=== PATIENT | female | born 1975 | race Caucasian/White ===

== ENCOUNTER 2019-06-17 13:49 | Observation (INO) ==
[2019-06-17 15:46] LABS: Bilirubin,Urine Negative (Negative); Blood,Urine Negative (Negative); Clarity,Urine Clear (Clear); Color,Urine Yellow (Yellow); Glucose,Urine (UA) Normal (Normal); Ketones,Urine Negative (Negative); Leukocyte Esterase,Urine Negative (Negative); Nitrite,Urine Negative (Negative); PH,Urine 6.5 pH Units (5.0-8.0); Protein,Urine Negative (Neg-Trace); Specific Gravity,Urine 1.011 (1.010-1.025); Urobilinogen,Urine Normal (Normal)
[2019-06-17 15:51] LABS: Amphetamine Screen,Urine Negative ng/mL (Cutoff=1000); Barbiturate Screen,Urine Negative ng/mL (Cutoff=200); Benzodiazepines Screen,Urine Negative ng/mL (Cutoff=200); Cannabinoid Screen,Urine Positive ng/mL (Cutoff = 50); Cocaine Screen,Urine Negative ng/mL (Cutoff= 300); Opiate Screen,Urine Negative ng/mL (Cutoff=300); Phencyclidine Screen,Urine Negative ng/mL (Cutoff=25)
[2019-06-17 15:58] LABS: Basophils # 0.1 K/mcL (0.0-0.2); Eosinophils # 0.4 K/mcL (0.0-0.6); Eosinophils % 5.1 %; Hematocrit 35.8 % (35.3-44.9); Hemoglobin 12.3 g/dL (11.5-15.4); Immature Granulocytes % 0.1 % (0-4); Lymphocytes # 2.2 K/mcL (0.6-4.6); Lymphocytes % 31.5 %; Mean Corpuscular HGB Conc 34.4 g/dL (31.6-35.5); Mean Platelet Volume 8.2 fL (9.4-12.4); Monocytes # 0.6 K/mcL (0.0-1.3); Monocytes % 8.3 %; Neutrophils # 3.8 K/mcL (1.6-8.9); Platelet Count 383 K/mcL (140-400); Red Blood Count 3.73 M/mcL (3.82-4.97); Red Cell Distribution Width 12.6 % (11.5-14.5); White Blood Count 7.1 K/mcL (4.3-11.1)
--- NOTE | 2019-06-17 16:00 | Emergency Department Note ---
Disposition Clinical Impression: Alcohol abuse Alcohol withdrawal Qualifiers: Complication of substance-induced condition: uncomplicated Qualified Code(s): F10.230 - Alcohol dependence with withdrawal, uncomplicated Disposition: Admitted As Inpatient Condition: Good Forms: ED Satisfaction Letter, Work/School Release Time of Disposition: 16:40 General Adult HPI - General Chief complaint: ED General Medical Stated complaint: "sent for detox" Time Seen by Provider: 06/17/19 14:29 Source: patient Mode of arrival: ambulatory Limitations: no limitations Nursing Notes Reviewed: Yes Vital Signs Reviewed: Yes - History of Present Illness HPI Narrative: 43-year-old female presented to the emergency department with possible alcohol withdrawal. Patient has been a chronic alcoholic for approximately 10-15 years. Said she drinks at least one bottle of wine every single night. She last drank approximately 2-3 hours prior to arrival. She did call here about possible resources as she got a recent DUI approximately a month ago. We sent her to [facility] where she was seen there they said a seawall score was 21 when they evaluated her and recommended she come here for evaluation for possible alcohol withdrawal. She was unable, due to work in this partly 2 days ago. She is able to come today says she did drink today they told her not to stop drinking she would go into withdrawal. She says she does want start drinking she was to clean up her life. She denies any suicidal or homicidal ideations at this time. Although she says when she recently has been drinking and blacked out people told her that she should she said she wanted to kill herself and actually had a plan on how she was given a do it. She does not remember any of that whenever she woke up. She has no feet no fevers no chills she has no shaking at this time. Patient otherwise has no other complaints. She says she feels very anxious. Does have history of PTSD and said that when she is not drinking all those memories come back. She is not currently taking any psychiatric medications or any other medications otherwise Pain Scale: 0 - Related Data Allergies Allergy/AdvReac Type Severity Reaction Status Date / Time No Known Allergies Allergy Verified 06/17/19 13:51 All systems ED: reviewed and negative except as stated. Review of Systems: As Per HPI Past Medical History - Past Medical History Attestation: Yes The following information was validated with the patient. Source: patient Medical history: Reports: no medical history Psychiatric history: Reports: anxiety, depression - Social History Smoking Status: Never smoker Smokeless Tobacco Status: No Alcohol use: Reports: heavy, recent Drug use: Reports: none Physical Exam - General Limitations: no limitations General appearance: alert, in no apparent distress - Head Head exam: atraumatic, normocephalic, normal inspection - Eye Eye exam: Present: normal appearance, PERRL, EOMI - ENT ENT exam: normal exam, normal oropharynx, mucous membranes moist - Neck Neck exam: Present: normal inspection, full ROM, trachea midline - Chest Chest inspection: Present: normal inspection, symmetric chest wall rise - Respiratory Respiratory exam: Present: normal lung sounds bilaterally - Cardiovascular Cardiovascular exam: Present: regular rate, normal rhythm, normal heart sounds - Abdominal Exam Abdominal exam: Present: soft, Non-Tender, normal bowel sounds. Absent: tenderness, distention, guarding, rebound, rigidity - Extremities Exam Extremities exam: Present: normal inspection, full ROM. Absent: tenderness, pedal edema - Back Exam Back exam: Present: normal inspection, full ROM. Absent: tenderness - Neurological Exam Neurological exam: Present: alert, oriented X3 - Skin Skin exam: Present: warm, dry, intact, normal color Course Course Narrative: We have basic psychiatry labs including CBC BMP urinalysis as well as everything is normal including an alcohol level and drug screen we will go ahead and admit the patient for alcohol intoxication and withdrawal symptoms. Vital Signs Temperature 98.1 F 06/17/19 13:52 Pulse Rate 98 06/17/19 13:52 Respiratory Rate 15 06/17/19 13:52 Blood Pressure 136/93 06/17/19 13:52 O2 Sat by Pulse Oximetry 96 06/17/19 13:52 Temperature 98.1 F 06/17/19 13:52 Pulse Rate 82 06/17/19 16:07 Respiratory Rate 16 06/17/19 16:07 Blood Pressure 127/85 06/17/19 16:07 O2 Sat by Pulse Oximetry 97 06/17/19 16:07 Oxygen Delivery Oxygen Delivery Room Air Medical Decision Making - [facility] Narrative Medical decision making narrative: 43-year-old female presented here for possible occult intoxication as well as detox. Patient says that she does want to stop drinking alcohol. She is not have any suicidal or homicidal ideations at this time but said that when she does drink she does have those thoughts. She does think that she does not to see a psychiatrist but is not emergent at this time. She again states that she has no suicidal or homicidal complaints at this time when she was in the emergency department. She did not need to be pink slipped. Patient did drink approximately 2-3 hours prior to her arrival. She did have an elevated alcohol of 113. Due to patient wanting to stop drinking she could go into withdrawal she has been drinking 1 bottle of wine every single day for the past 10 years. Due to this we will go ahead and keep the patient in the hospital and watch for withdrawal. She had a CIWA done at an outside facility that graded her at 19. We did order labs that were needed for possibly starting give a trial which included hepatitis HIV hepatic panel RPR. These are all pending at this time. I spoke with the hospitalist Dr. Felix who agreed to admit the patient to the hospital service for further evaluation. - Medical Records Medical records reviewed: Yes I reviewed the patient's medical records. - Lab Data Lab results reviewed: Yes I reviewed the patient's lab results. Result diagrams: 06/17/19 15:32 06/17/19 15:32 Lab Results 06/17/19 06/17/19 06/17/19 Range/Units 15:15 15:15 15:32 WBC 7.1 (4.3-11.1) K/mcL RBC 3.73 L (3.82-4.97) M/mcL Hgb 12.3 (11.5-15.4) g/dL Hct 35.8 (35.3-44.9) % MCV 96.0 (83.0-100.0) fL MCH 33.0 (28.0-33.3) pg MCHC 34.4 (31.6-35.5) g/dL RDW 12.6 (11.5-14.5) % Plt Count 383 (140-400) K/mcL MPV 8.2 L (9.4-12.4) fL Immature Gran % 0.1 (0-4) % Seg Neutrophils % 54.0 % Lymphocytes % 31.5 % Monocytes % 8.3 % Eosinophils % 5.1 % Basophils % 1.0 % Neutrophils # 3.8 (1.6-8.9) K/mcL Lymphocytes # 2.2 (0.6-4.6) K/mcL Monocytes # 0.6 (0.0-1.3) K/mcL Eosinophils # 0.4 (0.0-0.6) K/mcL Basophils # 0.1 (0.0-0.2) K/mcL Sodium (136-145) mEq/L Potassium (3.5-5.1) mEq/L Chloride (98-107) mEq/L Carbon Dioxide (23-29) mEq/L BUN (6-20) mg/dL Creatinine (0.60-1.20) mg/dL Est GFR ( Amer) (> 60) Est GFR (Non-Af Amer) (> 60) BUN/Creatinine Ratio (6-26) Glucose (70-105) mg/dL Calculated Osmolality (280-300) Calcium (8.6-10.3) mg/dL Urine Color Yellow (Yellow) Urine Clarity Clear (Clear) Urine pH 6.5 (5.0-8.0) pH Units Ur Specific [place] 1.011 (1.010-1.025) Urine Protein Negative (Neg-Trace) mg/dL Urine Glucose (UA) Normal (Normal) mg/dL Urine Ketones Negative (Negative) mg/dL Urine Blood Negative (Negative) Urine Nitrite Negative (Negative) Urine Bilirubin Negative (Negative) Urine Urobilinogen Normal (Normal) mg/dL Ur Leukocyte Esterase Negative (Negative) Salicylates (15.0-30.0) mg/dL Urine Opiates Screen Negative (Avyany=026) ng/mL Ur Buprenorphine Scrn Negative (Cutoff=5) ng/mL Acetaminophen (10-20) mcg/mL Ur Barbiturates Screen Negative (Aoiyne=307) ng/mL Ur Phencyclidine Scrn Negative (Cutoff=25) ng/mL Ur Amphetamines Screen Negative (Tcxkfb=1538) ng/mL U Benzodiazepines Scrn Negative (Ubvptc=498) ng/mL Urine Cocaine Screen Negative (Cutoff= 300) ng/mL U Marijuana (THC) Screen Positive H (Cutoff = 50) ng/mL Ur Drug Screen Interp See Below Ethyl Alcohol (Less than 10) mg/dL 06/17/19 Range/Units 15:32 WBC (4.3-11.1) K/mcL RBC (3.82-4.97) M/mcL Hgb (11.5-15.4) g/dL Hct (35.3-44.9) % MCV (83.0-100.0) fL MCH (28.0-33.3) pg MCHC (31.6-35.5) g/dL RDW (11.5-14.5) % Plt Count (140-400) K/mcL MPV (9.4-12.4) fL Immature Gran % (0-4) % Seg Neutrophils % % Lymphocytes % % Monocytes % % Eosinophils % % Basophils % % Neutrophils # (1.6-8.9) K/mcL Lymphocytes # (0.6-4.6) K/mcL Monocytes # (0.0-1.3) K/mcL Eosinophils # (0.0-0.6) K/mcL Basophils # (0.0-0.2) K/mcL Sodium 141 (136-145) mEq/L Potassium 3.6 (3.5-5.1) mEq/L Chloride 106 (98-107) mEq/L Carbon Dioxide 26 (23-29) mEq/L BUN 10 (6-20) mg/dL Creatinine 0.60 (0.60-1.20) mg/dL Est GFR ( Amer) > 60 (> 60) Est GFR (Non-Af Amer) > 60 (> 60) BUN/Creatinine Ratio 17 (6-26) Glucose 85 (70-105) mg/dL Calculated Osmolality 290 (280-300) Calcium 8.9 (8.6-10.3) mg/dL Urine Color (Yellow) Urine Clarity (Clear) Urine pH (5.0-8.0) pH Units Ur Specific [place] (1.010-1.025) Urine Protein (Neg-Trace) mg/dL Urine Glucose (UA) (Normal) mg/dL Urine Ketones (Negative) mg/dL Urine Blood (Negative) Urine Nitrite (Negative) Urine Bilirubin (Negative) Urine Urobilinogen (Normal) mg/dL Ur Leukocyte Esterase (Negative) Salicylates < 2.5 L (15.0-30.0) mg/dL Urine Opiates Screen (Cgdqev=112) ng/mL Ur Buprenorphine Scrn (Cutoff=5) ng/mL Acetaminophen < 10 L (10-20) mcg/mL Ur Barbiturates Screen (Pduzsv=567) ng/mL Ur Phencyclidine Scrn (Cutoff=25) ng/mL Ur Amphetamines Screen (Cucxpr=1174) ng/mL U Benzodiazepines Scrn (Nvqwub=652) ng/mL Urine Cocaine Screen (Cutoff= 300) ng/mL U Marijuana (THC) Screen (Cutoff = 50) ng/mL Ur Drug Screen Interp Ethyl Alcohol 113 H (Less than 10) mg/dL
[2019-06-17 16:11] LABS: Acetaminophen < 10 mcg/mL (10-20); BUN/Creatinine Ratio 17 (6-26); Blood Urea Nitrogen 10 mg/dL (6-20); Calcium 8.9 mg/dL (8.6-10.3); Carbon Dioxide 26 mEq/L (23-29); Chloride 106 mEq/L (98-107); Ethanol 113 mg/dL (Less than 10); Glucose 85 mg/dL (70-105); Osmolality,Calculated 290 (280-300); Potassium 3.6 mEq/L (3.5-5.1); Salicylate < 2.5 mg/dL (15.0-30.0); Sodium 141 mEq/L (136-145); eGFR For African Americans > 60 (> 60); eGFR For Non-African Americans > 60 (> 60)
--- NOTE | 2019-06-17 16:42 | Internal Med History&Physical ---
Date of Encounter: 06/17/19 Time of Encounter: 16:42 Internal Medicine - H&P: HPI Chief complaint: Alcohol abuse History of present illness: Ms. Nieto is a 43 year old female with no significant past medical history who presented for possible alcohol withdrawal. The patient is chronic alcoholic drink 1 bottle of GI wine every night. Last drink was about 3 hours prior to her arrival to the ER. The patient has been arrested for DUI about a month ago. The patient stated that she is genuinely wish to stop drinking alcohol, however she is afraid to stop suddenly and that will lead to alcohol withdrawal so decided to seek medical attention in our ER. We will admit the patient to the hospital and start CIWA protocol while waiting for social media coordinator to place her for detox. The patient has no history of psychiatric disorders and not in any psychiatric medication and denies suicidal and homicidal ideation. She stated that one night she wake up and she found a rope tied around her neck and that was made her concerned that she might has attempted or thought about suicide while drunk. We will consult psych for further evaluation and management. Past Med Surg Social Fam HX - Past Medical History Medical history: no medical history Psychiatric history: anxiety, depression - Past Surgical History Additional surgical history: breast sx - Social History Smoking Status: Never smoker Smokeless Tobacco Status: No Alcohol use: heavy, recent Drug use: none Internal Medicine - H&P: Meds No Known Home Drugs 06/17/19 [History] Allergy/AdvReac Type Severity Reaction Status Date / Time No Known Allergies Allergy Verified 06/17/19 13:51 All Systems PM: A 10-system review of systems was performed and is negative for pertinent findings except as documented above in the HPI. - Constitutional Vitals: Temp Pulse Resp BP Pulse Ox 98.1 F 82 16 127/85 97 06/17/19 13:52 06/17/19 16:07 06/17/19 16:07 06/17/19 16:07 06/17/19 16:07 General appearance: Present: A&O X 3 Exam: ` - Neck Neck exam general surgery: Present: supple, trachea midline. Absent: lympha denopathy - Respiratory Respiratory exam: Present: CTAB. Absent: accessory muscle use, rales, rhonchi, wheezes - Cardiovascular Cardiovascular exam: Present: RRR, +S1, +S2. Absent: diastolic murmur, gallop, rubs, systolic murmur - GI/Abdominal GI/Abdominal exam: Present: normal bowel sounds, soft, no peritoneal signs. Absent: distended, tenderness - Extremities Exam Extremities exam: Present: warm, radial pulses palpable and symmetrical. Absent: calf tenderness, cyanotic, pedal edema - Neurological Exam Neurological exam: Present: CN II-XII intact, oriented X3, no focal deficits. Absent: pronater drift, facial droop, speech deficit Internal Med - H&P Results - Labs CBC & Chem 7: 06/17/19 15:32 06/17/19 15:32 Labs: Short CBC 06/17/19 Range/Units 15:32 WBC 7.1 (4.3-11.1) K/mcL Hgb 12.3 (11.5-15.4) g/dL Hct 35.8 (35.3-44.9) % Plt Count 383 (140-400) K/mcL Neutrophils # 3.8 (1.6-8.9) K/mcL BMP 06/17/19 15:32 Sodium 141 Potassium 3.6 Chloride 106 Carbon Dioxide 26 BUN 10 Creatinine 0.60 Glucose 85 Calcium 8.9 Urine 06/17/19 Range/Units 15:15 Urine Color Yellow (Yellow) Urine Clarity Clear (Clear) Urine pH 6.5 (5.0-8.0) pH Units Ur Specific [place] 1.011 (1.010-1.025) Urine Protein Negative (Neg-Trace) mg/dL Urine Glucose (UA) Normal (Normal) mg/dL - Assessment and Plan (1) Alcohol abuse Current Visit: Yes Status: Acute Assessment and plan: We will admit the patient to the hospital and start WA protocol while waiting for social media coordinator to place her for detox. The patient has no history of psychiatric disorders and not in any psychiatric medication and denies suicidal and homicidal ideation. She stated that one night she wake up and she found a rope tied around her neck and that was made her concerned that she might has attempted or thought about suicide while drunk. We will consult psych for further evaluation and management. (2) Alcohol withdrawal Current Visit: Yes Status: Acute Assessment and plan: See #1 Qualifiers: Complication of substance-induced condition: with unspecified complication Qualified Code(s): F10.239 - Alcohol dependence with withdrawal, unspecified - Time Spent With Patient Total time spent is greater than 50% in coordination of care (as documented) at patient's floor/unit and/or counseling patient:
[2019-06-17] MEDS ORDERED: *HR* LORazepam 2 MG/ML VIAL IVP PRN ×3 (16:43)
[2019-06-17 16:44] LABS: Alanine Aminotransferase 25 Units/L (7-52); Albumin 4.3 g/dL (3.5-5.7); Albumin/Globulin Ratio 1.7 (1.1-2.2); Alkaline Phosphatase 49 Units/L (34-104); Aspartate Amino Transferase 23 Units/L (13-39); Bilirubin,Direct 0.1 mg/dL (0.0-0.2); Bilirubin,Indirect 0.2 mg/dL (0.0-1.2); Bilirubin,Total 0.3 mg/dL (0.3-1.0); Globulin 2.6 g/dL (2.4-3.5); Total Protein 6.9 g/dL (6.4-8.9)
[2019-06-17] MEDS ORDERED: Naloxone 0.4 MG/ML INJ IVP PRN (16:48)
[2019-06-17] MEDS ORDERED: Ondansetron 4 MG/2 ML VIAL IVP PRN (16:48)
[2019-06-17 17:04] LABS: Amylase 35 Units/L (29-103); Lipase 27 Units/L (11-82)
[2019-06-17 17:07] LABS: Prothrombin Time 11.1 Seconds (9.4-12.1)
--- NOTE | 2019-06-17 17:21 | Emergency Department Note ---
Disposition Clinical Impression: Alcohol abuse Alcohol withdrawal Qualifiers: Complication of substance-induced condition: with unspecified complication Qualified Code(s): F10.239 - Alcohol dependence with withdrawal, unspecified Disposition: Admitted As Inpatient Condition: Good Time of Disposition: 16:40 General Adult HPI - General Chief complaint: ED General Medical Stated complaint: "sent for detox" Time Seen by Provider: 06/17/19 14:29 Source: patient Mode of arrival: ambulatory Limitations: no limitations - History of Present Illness Pain Scale: 0 - Related Data Home Medications Medication Instructions Recorded Confirmed No Known Home Drugs 06/17/19 06/17/19 Allergies Allergy/AdvReac Type Severity Reaction Status Date / Time No Known Allergies Allergy Verified 06/17/19 13:51 Past Medical History - Past Medical History Medical history: Reports: no medical history Psychiatric history: Reports: anxiety, depression - Social History Smoking Status: Never smoker Smokeless Tobacco Status: No Alcohol use: Reports: heavy, recent Drug use: Reports: none Physical Exam - General Limitations: no limitations General appearance: alert, in no apparent distress Course Vital Signs Temperature 98.1 F 06/17/19 13:52 Pulse Rate 98 06/17/19 13:52 Respiratory Rate 15 06/17/19 13:52 Blood Pressure 136/93 06/17/19 13:52 O2 Sat by Pulse Oximetry 96 06/17/19 13:52 Temperature 98.4 F 06/18/19 10:54 Pulse Rate 84 06/18/19 10:54 Respiratory Rate 16 06/18/19 10:54 Blood Pressure 156/88 06/18/19 10:54 O2 Sat by Pulse Oximetry 97 06/18/19 10:54 Oxygen Delivery Oxygen Delivery Room Air Medical Decision Making - Lab Data Result diagrams: 06/18/19 04:26 06/18/19 04:26 Lab Results 06/17/19 06/17/19 06/17/19 Range/Units 15:15 15:15 15:32 WBC 7.1 (4.3-11.1) K/mcL RBC 3.73 L (3.82-4.97) M/mcL Hgb 12.3 (11.5-15.4) g/dL Hct 35.8 (35.3-44.9) % MCV 96.0 (83.0-100.0) fL MCH 33.0 (28.0-33.3) pg MCHC 34.4 (31.6-35.5) g/dL RDW 12.6 (11.5-14.5) % Plt Count 383 (140-400) K/mcL MPV 8.2 L (9.4-12.4) fL Immature Gran % 0.1 (0-4) % Seg Neutrophils % 54.0 % Lymphocytes % 31.5 % Monocytes % 8.3 % Eosinophils % 5.1 % Basophils % 1.0 % Neutrophils # 3.8 (1.6-8.9) K/mcL Lymphocytes # 2.2 (0.6-4.6) K/mcL Monocytes # 0.6 (0.0-1.3) K/mcL Eosinophils # 0.4 (0.0-0.6) K/mcL Basophils # 0.1 (0.0-0.2) K/mcL PT (9.4-12.1) Seconds INR Sodium (136-145) mEq/L Potassium (3.5-5.1) mEq/L Chloride (98-107) mEq/L Carbon Dioxide (23-29) mEq/L BUN (6-20) mg/dL Creatinine (0.60-1.20) mg/dL Est GFR ( Amer) (> 60) Est GFR (Non-Af Amer) (> 60) BUN/Creatinine Ratio (6-26) Glucose (70-105) mg/dL Calculated Osmolality (280-300) Calcium (8.6-10.3) mg/dL Total Bilirubin (0.3-1.0) mg/dL Direct Bilirubin (0.0-0.2) mg/dL Indirect Bilirubin (0.0-1.2) mg/dL AST (13-39) Units/L ALT (7-52) Units/L Alkaline Phosphatase (34-104) Units/L Serum Total Protein (6.4-8.9) g/dL Albumin (3.5-5.7) g/dL Globulin (2.4-3.5) g/dL Albumin/Globulin Ratio (1.1-2.2) Amylase (29-103) Units/L Lipase (11-82) Units/L Urine Color Yellow (Yellow) Urine Clarity Clear (Clear) Urine pH 6.5 (5.0-8.0) pH Units Ur Specific [place] 1.011 (1.010-1.025) Urine Protein Negative (Neg-Trace) mg/dL Urine Glucose (UA) Normal (Normal) mg/dL Urine Ketones Negative (Negative) mg/dL Urine Blood Negative (Negative) Urine Nitrite Negative (Negative) Urine Bilirubin Negative (Negative) Urine Urobilinogen Normal (Normal) mg/dL Ur Leukocyte Esterase Negative (Negative) Salicylates (15.0-30.0) mg/dL Urine Opiates Screen Negative (Ncceng=892) ng/mL Ur Buprenorphine Scrn Negative (Cutoff=5) ng/mL Acetaminophen (10-20) mcg/mL Ur Barbiturates Screen Negative (Gcuxfm=698) ng/mL Ur Phencyclidine Scrn Negative (Cutoff=25) ng/mL Ur Amphetamines Screen Negative (Mbcout=9955) ng/mL U Benzodiazepines Scrn Negative (Duwlzf=612) ng/mL Urine Cocaine Screen Negative (Cutoff= 300) ng/mL U Marijuana (THC) Screen Positive H (Cutoff = 50) ng/mL Ur Drug Screen Interp See Below Ethyl Alcohol (Less than 10) mg/dL T.pallidum Ab Interpret (NEGATIVE) Hep Bs Antigen (Nonreactive) Hep Bs Antibody (10.00 - ) mIU/mL Hepatitis C Ab Screen (Nonreactive) 06/17/19 06/17/19 06/17/19 Range/Units 15:32 15:32 15:32 WBC (4.3-11.1) K/mcL RBC (3.82-4.97) M/mcL Hgb (11.5-15.4) g/dL Hct (35.3-44.9) % MCV (83.0-100.0) fL MCH (28.0-33.3) pg MCHC (31.6-35.5) g/dL RDW (11.5-14.5) % Plt Count (140-400) K/mcL MPV (9.4-12.4) fL Immature Gran % (0-4) % Seg Neutrophils % % Lymphocytes % % Monocytes % % Eosinophils % % Basophils % % Neutrophils # (1.6-8.9) K/mcL Lymphocytes # (0.6-4.6) K/mcL Monocytes # (0.0-1.3) K/mcL Eosinophils # (0.0-0.6) K/mcL Basophils # (0.0-0.2) K/mcL PT 11.1 (9.4-12.1) Seconds INR 1.0 Sodium 141 (136-145) mEq/L Potassium 3.6 (3.5-5.1) mEq/L Chloride 106 (98-107) mEq/L Carbon Dioxide 26 (23-29) mEq/L BUN 10 (6-20) mg/dL Creatinine 0.60 (0.60-1.20) mg/dL Est GFR ( Amer) > 60 (> 60) Est GFR (Non-Af Amer) > 60 (> 60) BUN/Creatinine Ratio 17 (6-26) Glucose 85 (70-105) mg/dL Calculated Osmolality 290 (280-300) Calcium 8.9 (8.6-10.3) mg/dL Total Bilirubin 0.3 (0.3-1.0) mg/dL Direct Bilirubin 0.1 (0.0-0.2) mg/dL Indirect Bilirubin 0.2 (0.0-1.2) mg/dL AST 23 (13-39) Units/L ALT 25 (7-52) Units/L Alkaline Phosphatase 49 (34-104) Units/L Serum Total Protein 6.9 (6.4-8.9) g/dL Albumin 4.3 (3.5-5.7) g/dL Globulin 2.6 (2.4-3.5) g/dL Albumin/Globulin Ratio 1.7 (1.1-2.2) Amylase 35 (29-103) Units/L Lipase 27 (11-82) Units/L Urine Color (Yellow) Urine Clarity (Clear) Urine pH (5.0-8.0) pH Units Ur Specific [place] (1.010-1.025) Urine Protein (Neg-Trace) mg/dL Urine Glucose (UA) (Normal) mg/dL Urine Ketones (Negative) mg/dL Urine Blood (Negative) Urine Nitrite (Negative) Urine Bilirubin (Negative) Urine Urobilinogen (Normal) mg/dL Ur Leukocyte Esterase (Negative) Salicylates < 2.5 L (15.0-30.0) mg/dL Urine Opiates Screen (Jfnfgy=636) ng/mL Ur Buprenorphine Scrn (Cutoff=5) ng/mL Acetaminophen < 10 L (10-20) mcg/mL Ur Barbiturates Screen (Pnmgjm=960) ng/mL Ur Phencyclidine Scrn (Cutoff=25) ng/mL Ur Amphetamines Screen (Jlpmzy=4369) ng/mL U Benzodiazepines Scrn (Hbcmxy=451) ng/mL Urine Cocaine Screen (Cutoff= 300) ng/mL U Marijuana (THC) Screen (Cutoff = 50) ng/mL Ur Drug Screen Interp Ethyl Alcohol 113 H (Less than 10) mg/dL T.pallidum Ab Interpret Negative (NEGATIVE) Hep Bs Antigen Nonreactive (Nonreactive) Hep Bs Antibody > 850.00 (10.00 - ) mIU/mL Hepatitis C Ab Screen Nonreactive (Nonreactive) Attestation Statement - Attestation Attestation: I examined this patient and my medical decision-making was reviewed with the Resident Physician. I agree with the documented findings, disposition and treatment plan as described except to the extent set forth below. Patient a 43-year-old female presents to the emergency department with chief complaint of requesting alcohol detoxification. Patient reports that her last drink was this morning states she has prior history of problems with alcohol withdrawal and is now ready to finish drinking. Exam the patient is awake alert no acute distress Medical decision management due to the patient's prior history of severe alcohol withdrawal case was discussed with the hospitalist and the patient was accepted the hospitalist service
[2019-06-17 18:24] LABS: Hepatitis B Surface Antibody > 850.00 mIU/mL
[2019-06-17 18:34] LABS: Hepatitis B Surface Antigen Nonreactive (Nonreactive)
[2019-06-17] MEDS: 0.9 % Sodium Chloride 1,000 ML IVC SCH (18:38)
[2019-06-17 19:03] LABS: Hepatitis C Virus Antibody Nonreactive (Nonreactive)
[2019-06-17] MEDS ORDERED: Acetaminophen 325 MG TABLET PO ONE (20:59)
[2019-06-17] MEDS: Melatonin 3 MG TABLET PO PRN (21:58)
[2019-06-18] MEDS: 0.9 % Sodium Chloride 1,000 ML IVC SCH (04:27)
[2019-06-18 04:46] LABS: Basophils # 0.1 K/mcL (0.0-0.2); Eosinophils # 0.4 K/mcL (0.0-0.6); Eosinophils % 6.6 %; Hematocrit 35.9 % (35.3-44.9); Hemoglobin 12.2 g/dL (11.5-15.4); Immature Granulocytes % 0.3 % (0-4); Lymphocytes # 2.5 K/mcL (0.6-4.6); Lymphocytes % 42.9 %; Mean Corpuscular Hemoglobin 32.7 pg (28.0-33.3); Mean Corpuscular Volume 96.2 fL (83.0-100.0); Mean Platelet Volume 8.2 fL (9.4-12.4); Monocytes # 0.6 K/mcL (0.0-1.3); Monocytes % 9.9 %; Neutrophils # 2.3 K/mcL (1.6-8.9); Platelet Count 340 K/mcL (140-400); Red Blood Count 3.73 M/mcL (3.82-4.97); Red Cell Distribution Width 12.7 % (11.5-14.5); Segmented Neutrophils % 39.3 %; White Blood Count 5.8 K/mcL (4.3-11.1)
[2019-06-18 05:05] LABS: Alanine Aminotransferase 20 Units/L (7-52); Albumin 3.6 g/dL (3.5-5.7); Albumin/Globulin Ratio 1.6 (1.1-2.2); Alkaline Phosphatase 37 Units/L (34-104); Aspartate Amino Transferase 18 Units/L (13-39); BUN/Creatinine Ratio 16 (6-26); Bilirubin,Total 0.3 mg/dL (0.3-1.0); Blood Urea Nitrogen 9 mg/dL (6-20); Calcium 8.1 mg/dL (8.6-10.3); Carbon Dioxide 24 mEq/L (23-29); Chloride 108 mEq/L (98-107); Chol/HDL Ratio 2.9 (0-4.9); Cholesterol 132 mg/dL (< 200); Globulin 2.3 g/dL (2.4-3.5); Glucose 112 mg/dL (70-105); HDL Cholesterol 46 mg/dL (40-59); LDL Cholesterol,Calculated 62 mg/dL (0-99); Magnesium 2.1 mg/dL (1.6-2.6); Osmolality,Calculated 283 (280-300); Phosphorous 2.6 mg/dL (2.7-4.5); Potassium 3.3 mEq/L (3.5-5.1); Sodium 137 mEq/L (136-145); Total Protein 5.9 g/dL (6.4-8.9); Triglycerides 118 mg/dL (< 150); eGFR For African Americans > 60 (> 60); eGFR For Non-African Americans > 60 (> 60)
--- NOTE | 2019-06-18 15:03 | Internal Med Progress Note ---
Hospitalist Progress Note - Encounter Date of Encounter: 06/18/19 Time of Encounter: 10:00 - Subjective Interval History: Pt was seen and examined at bed side. She is alert, awake and O x 3 She does look depressed and got tearful She denied any suicidal ideations - Exam Vitals: Temp Pulse Resp BP Pulse Ox 98.4 F 84 16 156/88 97 06/18/19 10:54 06/18/19 10:54 06/18/19 10:54 06/18/19 10:54 06/18/19 10:54 Exam: Gen: Alert, awake, Oriented to time,place and person Chest: Diminished breath sounds B/L, No wheezing, No crackles, No rales Heart: S1S2+ RRR No murmurs Abd: Soft, NT, BS +, No organomegaly Ext: No edema, pulses are palpable, No calf tenderness Neuro : No acute focal neuro deficits noticed Skin: No rash. Psych : Depressed - Assessment and Plan (1) Alcohol abuse Current Visit: Yes Status: Acute Assessment and Plan: Her alcohol level was 113 y/d Pt stated she has last alcohol y/d morning before she came to ER Cont close monitoring for DT's on CIWA protocol will start her on RUSTAM Librium Started her on Thiamine and Folic acid Her Live US was unremarkable. She is willing to go to our pt walk in alcohol rehab place SW working on it (2) Alcohol withdrawal Current Visit: Yes Status: Acute Assessment and Plan: as above plan (3) Substance abuse Current Visit: Yes Status: Acute Assessment and Plan: UDS positive for Marijuana counseled to quit doing drugs (4) Depression Current Visit: Yes Status: Acute Assessment and Plan: due to alcohol dependence denied any suicidal ideation recommended to follow up with psychiatry as an outpatient - Time Spent with Patient Total time spent is greater than 50% in coordination of care (as documented) at patient's floor/unit and/or counseling patient: Internal Medicine: Result - Labs CBC & Chem 7: 06/18/19 04:26 06/18/19 04:26 Labs: Short CBC 06/17/19 06/18/19 Range/Units 15:32 04:26 WBC 7.1 5.8 (4.3-11.1) K/mcL Hgb 12.3 12.2 (11.5-15.4) g/dL Hct 35.8 35.9 (35.3-44.9) % Plt Count 383 340 (140-400) K/mcL Neutrophils # 3.8 2.3 (1.6-8.9) K/mcL BMP 06/17/19 06/18/19 15:32 04:26 Sodium 141 137 Potassium 3.6 3.3 L Chloride 106 108 H Carbon Dioxide 26 24 BUN 10 9 Creatinine 0.60 0.58 L Glucose 85 112 H Calcium 8.9 8.1 L Liver Function 06/17/19 06/18/19 Range/Units 15:32 04:26 Total Bilirubin 0.3 0.3 (0.3-1.0) mg/dL Direct Bilirubin 0.1 (0.0-0.2) mg/dL AST 23 18 (13-39) Units/L ALT 25 20 (7-52) Units/L Alkaline Phosphatase 49 37 (34-104) Units/L Albumin 4.3 3.6 (3.5-5.7) g/dL Urine 06/17/19 Range/Units 15:15 Urine Color Yellow (Yellow) Urine Clarity Clear (Clear) Urine pH 6.5 (5.0-8.0) pH Units Ur Specific [place] 1.011 (1.010-1.025) Urine Protein Negative (Neg-Trace) mg/dL Urine Glucose (UA) Normal (Normal) mg/dL - ABG Interpretation ABG results: PT/INR, D-dimer PT 11.1 Seconds (9.4-12.1) 06/17/19 15:32 - Impressions Impressions Liver Ultrasound 06/17/19 21:00 IMPRESSION: Unremarkable right upper quadrant ultrasound. D/ / Jessy Guerrero MD / Jessy Guerrero MD Interpreting Provider: Jessy Guerrero MD Consult Discharge Plan - Plan Referrals: Austin Mendenhall DO [Primary Care Provider] - 06/21/19 2:00 pm (2) Alcohol withdrawal Qualifiers: Complication of substance-induced condition: with unspecified complication Qualified Code(s): F10.239 - Alcohol dependence with withdrawal, unspecified (4) Depression Qualifiers: Depression Type: reactive depression Qualified Code(s): F32.9 - Major depre ssive disorder, single episode, unspecified
[2019-06-18] MEDS: Thiamine (B-1) 100 MG TABLET PO SCH (15:53)
[2019-06-18] MEDS: Folic Acid 1 MG TABLET PO SCH (15:53)
--- NOTE | 2019-06-19 06:40 | Event Note ---
Date of Encounter: 06/18/19 Time of Encounter: 21:09 Alerted by patient's nurse ARGENIS Crisostomo that patient had been admitted for detox for alcoholism. Patient was also pink slipped earlier in the day due to comments she made regarding self-harm. Nurse reported that patient was now refusing any treatment and stated she had she would have a seizure. Nurse instructed to make a nurse's note regarding refusals until I could see the patient. Went to see the patient who was resting in bed, anxious, and angry about being pink slipped. I explained to the patient purpose of the pink slip when she voiced suicidal ideations and how this was for her own protection. I also explained to the patient the danger of not accepting treatment for her current alcohol withdrawal which could result in a possible seizure. I informed the patient she was currently full code and if she became unresponsive she will be intubated to help ensure her survival. Patient expressed understanding to the gravity of what I was telling her. Patient stated she wanted the pink slip removed. I informed the patient that would not be possible until a psychiatrist examined her and determined she was no longer suicidal. Patient stated she would continue to refuse treatment while she was pink slipped. Patient stated she wanted to see a psychiatrist tonight. I stated this would probably be impossible but I would call the psychiatrist aeronautical engineering teacher. After leaving the room, the [employer] stopping and stated that the patient had told her multiple times "I am going to tell anyone what they want to hear so I can get home faster, then I am going to kill myself". Called [facility] and spoke with the psychiatrist aeronautical engineering teacher and made her aware of the situation, including the pts. claims she made to the [employer]. The Psychiatrist stated she would see the pt. in the a.m. Nurse instructed to continue monitoring the pt. very closely overnight and alert me immediately of any adverse changes. Sitter present. Nurse continued to alert me throughout the night that the pt. continued to refuse treatment.
--- NOTE | 2019-06-19 09:34 | Consult Note ---
Date of Encounter: 06/19/19 Time of Encounter: 09:34 History of Present Illness Requesting Physician: Lorenza Dick MD History of present illness: Ms. Nieto is a 43 year old female CC: Lorenza Dick MD Past Med Surg Social Fam HX - Past Medical History Medical history: no medical history - Past Surgical History Surgical History: - Social History Smoking Status: Never smoker Smokeless Tobacco Status: No Alcohol use: heavy, recent Drug use: none Medications & Allergies No Known Home Drugs 06/17/19 [History] Allergy/AdvReac Type Severity Reaction Status Date / Time No Known Allergies Allergy Verified 06/17/19 13:51 Psychiatry Exam - Constitutional Vitals: Temp Pulse Resp BP Pulse Ox 98.4 F 84 16 156/88 97 06/18/19 10:54 06/18/19 10:54 06/18/19 10:54 06/18/19 10:54 06/18/19 10:54 Results - Labs Labs: Laboratory Last Values WBC 5.8 K/mcL (4.3-11.1) 06/18/19 04:26 RBC 3.73 M/mcL (3.82-4.97) L 06/18/19 04:26 Hgb 12.2 g/dL (11.5-15.4) 06/18/19 04:26 Hct 35.9 % (35.3-44.9) 06/18/19 04:26 MCV 96.2 fL (83.0-100.0) 06/18/19 04:26 MCH 32.7 pg (28.0-33.3) 06/18/19 04:26 MCHC 34.0 g/dL (31.6-35.5) 06/18/19 04:26 RDW 12.7 % (11.5-14.5) 06/18/19 04:26 Plt Count 340 K/mcL (140-400) 06/18/19 04:26 MPV 8.2 fL (9.4-12.4) L 06/18/19 04:26 Immature Gran % 0.3 % (0-4) 06/18/19 04:26 Seg Neutrophils % 39.3 % 06/18/19 04:26 Lymphocytes % 42.9 % 06/18/19 04:26 Monocytes % 9.9 % 06/18/19 04:26 Eosinophils % 6.6 % 06/18/19 04:26 Basophils % 1.0 % 06/18/19 04:26 Neutrophils # 2.3 K/mcL (1.6-8.9) 06/18/19 04:26 Lymphocytes # 2.5 K/mcL (0.6-4.6) 06/18/19 04:26 Monocytes # 0.6 K/mcL (0.0-1.3) 06/18/19 04:26 Eosinophils # 0.4 K/mcL (0.0-0.6) 06/18/19 04:26 Basophils # 0.1 K/mcL (0.0-0.2) 06/18/19 04:26 PT 11.1 Seconds (9.4-12.1) 06/17/19 15:32 INR 1.0 06/17/19 15:32 APTT 31.9 Seconds (26.0-36.0) 06/18/19 04:26 Sodium 137 mEq/L (136-145) 06/18/19 04:26 Potassium 3.3 mEq/L (3.5-5.1) L 06/18/19 04:26 Chloride 108 mEq/L (98-107) H 06/18/19 04:26 Carbon Dioxide 24 mEq/L (23-29) 06/18/19 04:26 BUN 9 mg/dL (6-20) 06/18/19 04:26 Creatinine 0.58 mg/dL (0.60-1.20) L 06/18/19 04:26 Est GFR ( Amer) > 60 (> 60) 06/18/19 04:26 Est GFR (Non-Af Amer) > 60 (> 60) 06/18/19 04:26 BUN/Creatinine Ratio 16 (6-26) 06/18/19 04:26 Glucose 112 mg/dL (70-105) H 06/18/19 04:26 POC Glucose 100 mg/dL (70-99) H 06/18/19 08:11 Calculated Osmolality 283 (280-300) 06/18/19 04:26 Calcium 8.1 mg/dL (8.6-10.3) L 06/18/19 04:26 Phosphorus 2.6 mg/dL (2.7-4.5) L 06/18/19 04:26 Magnesium 2.1 mg/dL (1.6-2.6) 06/18/19 04:26 Total Bilirubin 0.3 mg/dL (0.3-1.0) 06/18/19 04:26 Direct Bilirubin 0.1 mg/dL (0.0-0.2) 06/17/19 15:32 Indirect Bilirubin 0.2 mg/dL (0.0-1.2) 06/17/19 15:32 AST 18 Units/L (13-39) 06/18/19 04:26 ALT 20 Units/L (7-52) 06/18/19 04:26 Alkaline Phosphatase 37 Units/L (34-104) 06/18/19 04:26 Serum Total Protein 5.9 g/dL (6.4-8.9) L 06/18/19 04:26 Albumin 3.6 g/dL (3.5-5.7) 06/18/19 04:26 Globulin 2.3 g/dL (2.4-3.5) L 06/18/19 04:26 Albumin/Globulin Ratio 1.6 (1.1-2.2) 06/18/19 04:26 Triglycerides 118 mg/dL (< 150) 06/18/19 04:26 Cholesterol 132 mg/dL (< 200) 06/18/19 04:26 LDL Cholesterol, Calc 62 mg/dL (0-99) 06/18/19 04:26 VLDL Cholesterol, Calc 24 mg/dL (< 31) 06/18/19 04:26 HDL Cholesterol 46 mg/dL (40-59) 06/18/19 04:26 Cholesterol/HDL Ratio 2.9 (0-4.9) 06/18/19 04:26 Amylase 35 Units/L (29-103) 06/17/19 15:32 Lipase 27 Units/L (11-82) 06/17/19 15:32 Urine Color Yellow (Yellow) 06/17/19 15:15 Urine Clarity Clear (Clear) 06/17/19 15:15 Urine pH 6.5 pH Units (5.0-8.0) 06/17/19 15:15 Ur Specific [place] 1.011 (1.010-1.025) 06/17/19 15:15 Urine Protein Negative mg/dL (Neg-Trace) 06/17/19 15:15 Urine Glucose (UA) Normal mg/dL (Normal) 06/17/19 15:15 Urine Ketones Negative mg/dL (Negative) 06/17/19 15:15 Urine Blood Negative (Negative) 06/17/19 15:15 Urine Nitrite Negative (Negative) 06/17/19 15:15 Urine Bilirubin Negative (Negative) 06/17/19 15:15 Urine Urobilinogen Normal mg/dL (Normal) 06/17/19 15:15 Ur Leukocyte Esterase Negative (Negative) 06/17/19 15:15 Salicylates < 2.5 mg/dL (15.0-30.0) L 06/17/19 15:32 Urine Opiates Screen Negative ng/mL (Roqmdg=215) 06/17/19 15:15 Ur Buprenorphine Scrn Negative ng/mL (Cutoff=5) 06/17/19 15:15 Acetaminophen < 10 mcg/mL (10-20) L 06/17/19 15:32 Ur Barbiturates Screen Negative ng/mL (Awujdv=009) 06/17/19 15:15 Ur Phencyclidine Scrn Negative ng/mL (Cutoff=25) 06/17/19 15:15 Ur Amphetamines Screen Negative ng/mL (Fksjmd=9060) 06/17/19 15:15 U Benzodiazepines Scrn Negative ng/mL (Lzdozp=837) 06/17/19 15:15 Urine Cocaine Screen Negative ng/mL (Cutoff= 300) 06/17/19 15:15 U Marijuana (THC) Screen Positive ng/mL (Cutoff = 50) H 06/17/19 15:15 Ur Drug Screen Interp See Below 06/17/19 15:15 Ethyl Alcohol 113 mg/dL (Less than 10) H 06/17/19 15:32 T.pallidum Ab Interpret Negative (NEGATIVE) 06/17/19 15:32 Hep Bs Antigen Nonreactive (Nonreactive) 06/17/19 15:32 Hep Bs Antibody > 850.00 mIU/mL (10.00-) 06/17/19 15:32 Hepatitis C Ab Screen Nonreactive (Nonreactive) 06/17/19 15:32 Consult Discharge Plan - Plan Referrals: Austin Mendenhall DO [Primary Care Provider] - 06/21/19 2:00 pm
[2019-06-19] MEDS: Folic Acid 1 MG TABLET PO SCH (10:05)
[2019-06-19] MEDS: Thiamine (B-1) 100 MG TABLET PO SCH (10:05)
--- NOTE | 2019-06-19 10:19 | Consult Note ---
Date of Encounter: 06/19/19 Time of Encounter: 10:00 Assessment & Recommendation (1) Alcohol abuse Current visit: Yes Status: Acute Assessment & Recommendation: Patient is not currently endorsing any suicidal thoughts, ideations, or plans. She is very future oriented. She has no prior suicide attempts. She has no depressive history. She does have a history of PTSD and anxiety which has been managed. This morning she does not meet pink slip criteria. As such psychiatry recommends discontinuing the pink slip. Psychiatry does not see a need for continuation of the sitter. She is eager to get back to treatment for her detoxification now that she has no longer upset. She is in agreement to treatment as recommended. She does understand the risks and benefits of alcohol treatment and of potential refusal so she does have capacity to make treatment decisions including if she does in the future decide she wants to decline treatment. We will sign off unless reconsult. History of Present Illness Patient: new to practice Requesting Physician: Lorenza Dick MD Reason for consult: made a comment about leaving to hurt herself and saying whatever to d/c History of present illness: Ms. Nieto is a 43 year old female who was admitted for detoxification from alcohol. Apparently yesterday she was on the phone with her daughter and her daughter told her she was no longer going to allow her to see her grandchild due to her daughter finding out about her DUI. She said she was very upset during this conversation and did at that time endorse some thoughts about not wanting to go on. She said she was then asked by the sitter if she was suicidal and she told the sitter that she would not have come to the hospital she was suicidal she would have done something while she was at home. Apparently the sitter interpreted this to mean that she was going to go home and hurt herself but the patient was very this was not the case. She came to the hospital because she wanted help with her alcoholism. She said that she then became upset when they placed her on suicide precautions and took away all of her belongings because she was unable to face time with [id number] or talk to family. She said at that point she did not feel she could trust the hospital or temporal use as she had heard staff talking about her and at that point she declined treatment due to feeling that they did not have her best interests at heart. She says she has not been having any recent suicidal thoughts. She has no intent or plan to harm herself. She is very future oriented and goal directed. She wants to get her phone and computer back so that she can call her jobs with emotional be in today but should be back tomorrow and wants to face time with her 2-year-old and talk to her . She is again very future oriented and has both short-term and long-term plans for getting her life back on track. She is very motivated to detox from alcohol and stop drinking. She says that she did have suicidal thoughts once a few months ago after the of a good friend but she at that time did not have any plan and did nothing to harm herself. She has never tried to hurt herself in the past. She has no prior suicide attempts or intentional self injury for other purposes. She has no family history of suicides. She does have a past history of psychiatric diagnoses of PTSD and anxiety. She is not taking any medications for these but says she does occasionally use marijuana which she finds helpful. She is now willing to complete the alcohol detoxification as recommended. CC: Lorenza Dick MD Past Med Surg Social Fam HX - Past Medical History Medical history: no medical history - Past Psychiatric History Psychiatric history: Reports: anxiety, PTSD. Denies: prior suicide attempt, previous psychiatric hospitalization Past psychiatric history details: She has previously done treatment for her PTSD and anxiety as an outpatient at [facility] in [place]. No prior suicide attempts. No prior self injury. No prior hospitalizations. No prior medication trials. Family psychiatric history: No Family History of Suicide: None - Past Surgical History Surgical History: - Social History Smoking Status: Never smoker Smokeless Tobacco Status: No Alcohol use: heavy, recent Drug use: none Occupational status: employed Activity Level: Independent ambulation Recent Out of Country Travel Within the Last 8 Weeks: No Exposure or Possible Exposure to Illness During Travel: No Additional social history: Recently moved from [place] with her . She is employed at [employer] 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 Medications & Allergies No Known Home Drugs 06/17/19 [History] Allergy/AdvReac Type Severity Reaction Status Date / Time No Known Allergies Allergy Verified 06/17/19 13:51 Review of Systems Constitutional: Reports: night sweats Eyes: Denies: eye pain Ears, Nose, Throat: Denies: ear pain Cardiovascular: Reports: palpitations Respiratory: Denies: cough Gastrointestinal: Reports: nausea Genitourinary female: Denies: urgency Musculoskeletal: Reports: joint pain Integumentary: Denies: rash Neurological: Reports: headache Psychiatric: Reports: anxiety. Denies: depression, suicidal ideation, homicidal ideation, auditory hallucinations, visual hallucinations Endocrine: Reports: fatigue Hematologic/Lymphatic: Denies: easy bleeding Allergic/Immunologic: Denies: facial swelling Psychiatry Exam - Constitutional Vitals: Temp Pulse Resp BP Pulse Ox 98.4 F 84 16 156/88 97 06/18/19 10:54 06/18/19 10:54 06/18/19 10:54 06/18/19 10:54 06/18/19 10:54 General appearance: age & developmentally appropriate, well-groomed, well- nourished - Musculoskeletal Gait: normal Station: relaxed Strength & Tone: normal for patient - Psychiatric Patient Orientation: Yes Person, Yes Time, Yes Place, Yes Circumstance Level of alertness: Alert Behavior: calm, cooperative Psychomotor activity: Normal Eye Contact: Maintains Eye Contact Mood Description: Euthymic/stable Patient description of mood: Better since you listening Affect description: congruent with mood, full range Speech Volume: Normal Speech pattern: normal rate, normal rhythm, normal tone, fluent, spontaneous Language & Vocabulary: consistent with education Thought Process: Linear, Goal Oriented Thought Content: No Suicidal ideation, No Homicidal ideation, No Overt delusions Perceptual Disturbances: No Auditory hallucinations, No Visual hallucinations Attention Span Ability: Capable of Focused Attention Memory Description: Grossly Intact Patient Reliability: Reliable Historian Fund of knowledge: Yes abstraction ability, Yes aware of current events Intelligence Estimate: Average Judgment: Good Insight: Full Results - Labs Labs: Laboratory Last Values WBC 5.8 K/mcL (4.3-11.1) 06/18/19 04:26 RBC 3.73 M/mcL (3.82-4.97) L 06/18/19 04:26 Hgb 12.2 g/dL (11.5-15.4) 06/18/19 04:26 Hct 35.9 % (35.3-44.9) 06/18/19 04:26 MCV 96.2 fL (83.0-100.0) 06/18/19 04:26 MCH 32.7 pg (28.0-33.3) 06/18/19 04:26 MCHC 34.0 g/dL (31.6-35.5) 06/18/19 04:26 RDW 12.7 % (11.5-14.5) 06/18/19 04:26 Plt Count 340 K/mcL (140-400) 06/18/19 04:26 MPV 8.2 fL (9.4-12.4) L 06/18/19 04:26 Immature Gran % 0.3 % (0-4) 06/18/19 04:26 Seg Neutrophils % 39.3 % 06/18/19 04:26 Lymphocytes % 42.9 % 06/18/19 04:26 Monocytes % 9.9 % 06/18/19 04:26 Eosinophils % 6.6 % 06/18/19 04:26 Basophils % 1.0 % 06/18/19 04:26 Neutrophils # 2.3 K/mcL (1.6-8.9) 06/18/19 04:26 Lymphocytes # 2.5 K/mcL (0.6-4.6) 06/18/19 04:26 Monocytes # 0.6 K/mcL (0.0-1.3) 06/18/19 04:26 Eosinophils # 0.4 K/mcL (0.0-0.6) 06/18/19 04:26 Basophils # 0.1 K/mcL (0.0-0.2) 06/18/19 04:26 PT 11.1 Seconds (9.4-12.1) 06/17/19 15:32 INR 1.0 06/17/19 15:32 APTT 31.9 Seconds (26.0-36.0) 06/18/19 04:26 Sodium 137 mEq/L (136-145) 06/18/19 04:26 Potassium 3.3 mEq/L (3.5-5.1) L 06/18/19 04:26 Chloride 108 mEq/L (98-107) H 06/18/19 04:26 Carbon Dioxide 24 mEq/L (23-29) 06/18/19 04:26 BUN 9 mg/dL (6-20) 06/18/19 04:26 Creatinine 0.58 mg/dL (0.60-1.20) L 06/18/19 04:26 Est GFR ( Amer) > 60 (> 60) 06/18/19 04:26 Est GFR (Non-Af Amer) > 60 (> 60) 06/18/19 04:26 BUN/Creatinine Ratio 16 (6-26) 06/18/19 04:26 Glucose 112 mg/dL (70-105) H 06/18/19 04:26 POC Glucose 100 mg/dL (70-99) H 06/18/19 08:11 Calculated Osmolality 283 (280-300) 06/18/19 04:26 Calcium 8.1 mg/dL (8.6-10.3) L 06/18/19 04:26 Phosphorus 2.6 mg/dL (2.7-4.5) L 06/18/19 04:26 Magnesium 2.1 mg/dL (1.6-2.6) 06/18/19 04:26 Total Bilirubin 0.3 mg/dL (0.3-1.0) 06/18/19 04:26 Direct Bilirubin 0.1 mg/dL (0.0-0.2) 06/17/19 15:32 Indirect Bilirubin 0.2 mg/dL (0.0-1.2) 06/17/19 15:32 AST 18 Units/L (13-39) 06/18/19 04:26 ALT 20 Units/L (7-52) 06/18/19 04:26 Alkaline Phosphatase 37 Units/L (34-104) 06/18/19 04:26 Serum Total Protein 5.9 g/dL (6.4-8.9) L 06/18/19 04:26 Albumin 3.6 g/dL (3.5-5.7) 06/18/19 04:26 Globulin 2.3 g/dL (2.4-3.5) L 06/18/19 04:26 Albumin/Globulin Ratio 1.6 (1.1-2.2) 06/18/19 04:26 Triglycerides 118 mg/dL (< 150) 06/18/19 04:26 Cholesterol 132 mg/dL (< 200) 06/18/19 04:26 LDL Cholesterol, Calc 62 mg/dL (0-99) 06/18/19 04:26 VLDL Cholesterol, Calc 24 mg/dL (< 31) 06/18/19 04:26 HDL Cholesterol 46 mg/dL (40-59) 06/18/19 04:26 Cholesterol/HDL Ratio 2.9 (0-4.9) 06/18/19 04:26 Amylase 35 Units/L (29-103) 06/17/19 15:32 Lipase 27 Units/L (11-82) 06/17/19 15:32 Urine Color Yellow (Yellow) 06/17/19 15:15 Urine Clarity Clear (Clear) 06/17/19 15:15 Urine pH 6.5 pH Units (5.0-8.0) 06/17/19 15:15 Ur Specific [place] 1.011 (1.010-1.025) 06/17/19 15:15 Urine Protein Negative mg/dL (Neg-Trace) 06/17/19 15:15 Urine Glucose (UA) Normal mg/dL (Normal) 06/17/19 15:15 Urine Ketones Negative mg/dL (Negative) 06/17/19 15:15 Urine Blood Negative (Negative) 06/17/19 15:15 Urine Nitrite Negative (Negative) 06/17/19 15:15 Urine Bilirubin Negative (Negative) 06/17/19 15:15 Urine Urobilinogen Normal mg/dL (Normal) 06/17/19 15:15 Ur Leukocyte Esterase Negative (Negative) 06/17/19 15:15 Salicylates < 2.5 mg/dL (15.0-30.0) L 06/17/19 15:32 Urine Opiates Screen Negative ng/mL (Ibzjzg=307) 06/17/19 15:15 Ur Buprenorphine Scrn Negative ng/mL (Cutoff=5) 06/17/19 15:15 Acetaminophen < 10 mcg/mL (10-20) L 06/17/19 15:32 Ur Barbiturates Screen Negative ng/mL (Tymede=542) 06/17/19 15:15 Ur Phencyclidine Scrn Negative ng/mL (Cutoff=25) 06/17/19 15:15 Ur Amphetamines Screen Negative ng/mL (Cwnnkn=6883) 06/17/19 15:15 U Benzodiazepines Scrn Negative ng/mL (Twflqe=983) 06/17/19 15:15 Urine Cocaine Screen Negative ng/mL (Cutoff= 300) 06/17/19 15:15 U Marijuana (THC) Screen Positive ng/mL (Cutoff = 50) H 06/17/19 15:15 Ur Drug Screen Interp See Below 06/17/19 15:15 Ethyl Alcohol 113 mg/dL (Less than 10) H 06/17/19 15:32 T.pallidum Ab Interpret Negative (NEGATIVE) 06/17/19 15:32 Hep Bs Antigen Nonreactive (Nonreactive) 06/17/19 15:32 Hep Bs Antibody > 850.00 mIU/mL (10.00-) 06/17/19 15:32 Hepatitis C Ab Screen Nonreactive (Nonreactive) 06/17/19 15:32 Consult Discharge Plan - Plan Referrals: Austin Mendenhall DO [Primary Care Provider] - 06/21/19 2:00 pm
--- NOTE | 2019-06-19 15:30 | Internal Med Progress Note ---
Hospitalist Progress Note - Encounter Date of Encounter: 06/19/19 Time of Encounter: 14:00 - Subjective Interval History: Pt was seen and examined at bed side. She is less tearful today however she still looks depressed, noticed labile moods she denied any suicidal ideation today She did mention of halluciantions She did not take her Librium / Ativan since last night.. - Exam Vitals: Temp Pulse Resp BP Pulse Ox 97.6 F 75 16 122/84 100 06/19/19 15:20 06/19/19 15:20 06/19/19 15:20 06/19/19 15:20 06/19/19 15:20 Exam: Gen: Alert, awake, Oriented to time,place and person Chest: Diminished breath sounds B/L, No wheezing, No crackles, No rales Heart: S1S2+ RRR No murmurs Abd: Soft, NT, BS +, No organomegaly Ext: No edema, pulses are palpable, No calf tenderness Neuro : No acute focal neuro deficits noticed Skin: No rash. Psych : Depressed..Visual Hallucinations - Assessment and Plan (1) Alcohol abuse Current Visit: Yes Status: Acute Assessment and Plan: Her alcohol level was 113 upon admission Pt stated she has last alcohol in the morning before she came to ER Cont close monitoring for DT's on CIWA protocol Con RUSTAM Librium Cont Thiamine and Folic acid Her Liver US was unremarkable. (2) Alcohol withdrawal Current Visit: Yes Status: Acute Assessment and Plan: as above plan (3) Suicidal ideation Current Visit: Yes Status: Acute Assessment and Plan: y/d she made comments like "wanted to kill herself on her way home by drinking a bottle of wine", " If I wanted to kill myself , I would not do it here int hospital, will do at home where I can be 100 % successful" " I will tell the people ( Doctors, Nurses ) what they want to hear only so that they can remove my pink slip and let me go home, I can do whatever I want when I go home " Also she was very depressed and tear full all day Talked to Dr. Nix ( psychiatrist ) @ [phone], who suggested to continue [place] Slip and suicidal precautions for now cont sitter 1 to 1 will assess the pt in the morning (4) Substance abuse Current Visit: Yes Status: Acute Assessment and Plan: UDS positive for Marijuana counseled to quit doing drugs (5) Depression Current Visit: Yes Status: Acute Assessment and Plan: due to alcohol dependence Psych on board - Time Spent with Patient Total time spent is greater than 50% in coordination of care (as documented) at patient's floor/unit and/or counseling patient: Internal Medicine: Result - Labs CBC & Chem 7: 06/18/19 04:26 06/18/19 04:26 - ABG Interpretation ABG results: PT/INR, D-dimer PT 11.1 Seconds (9.4-12.1) 06/17/19 15:32 Consult Discharge Plan - Plan Referrals: Austin Mendenhall DO [Primary Care Provider] - 06/21/19 2:00 pm __ (2) Alcohol withdrawal Qualifiers: Complication of substance-induced condition: with unspecified complication Qualified Code(s): F10.239 - Alcohol dependence with withdrawal, unspecified (5) Depression Qualifiers: Depression Type: reactive depression Qualified Code(s): F32.9 - Major depressive disorder, single episode, unspecified
[2019-06-19] MEDS: *HR* LORazepam 1 MG TABLET PO PRN ×2 (17:39→21:55)
[2019-06-19 17:49] LABS: HIV-1 Ab Supplemental NEGATIVE (Negative); HIV-2 Ab Supplemental NEGATIVE (Negative)
[2019-06-19] MEDS: Melatonin 3 MG TABLET PO PRN (21:55)
[2019-06-20] MEDS: *HR* LORazepam 1 MG TABLET PO PRN ×4 (06:30→21:14)
[2019-06-20] MEDS: Thiamine (B-1) 100 MG TABLET PO SCH (08:16)
[2019-06-20] MEDS: Folic Acid 1 MG TABLET PO SCH (08:16)
[2019-06-20 09:17] LABS: Hematocrit 39.6 % (35.3-44.9); Hemoglobin 13.7 g/dL (11.5-15.4); Mean Corpuscular HGB Conc 34.6 g/dL (31.6-35.5); Mean Corpuscular Hemoglobin 33.7 pg (28.0-33.3); Mean Corpuscular Volume 97.5 fL (83.0-100.0); Mean Platelet Volume 8.1 fL (9.4-12.4); Platelet Count 407 K/mcL (140-400); Red Blood Count 4.06 M/mcL (3.82-4.97); Red Cell Distribution Width 12.6 % (11.5-14.5); White Blood Count 7.7 K/mcL (4.3-11.1)
[2019-06-20 09:36] LABS: Alanine Aminotransferase 18 Units/L (7-52); Albumin 4.1 g/dL (3.5-5.7); Albumin/Globulin Ratio 1.5 (1.1-2.2); Alkaline Phosphatase 46 Units/L (34-104); Aspartate Amino Transferase 16 Units/L (13-39); BUN/Creatinine Ratio 8 (6-26); Bilirubin,Total 0.4 mg/dL (0.3-1.0); Blood Urea Nitrogen 6 mg/dL (6-20); Calcium 9.1 mg/dL (8.6-10.3); Carbon Dioxide 26 mEq/L (23-29); Chloride 102 mEq/L (98-107); Globulin 2.7 g/dL (2.4-3.5); Glucose 102 mg/dL (70-105); Osmolality,Calculated 282 (280-300); Potassium 3.4 mEq/L (3.5-5.1); Sodium 137 mEq/L (136-145); Total Protein 6.8 g/dL (6.4-8.9); eGFR For African Americans > 60 (> 60); eGFR For Non-African Americans > 60 (> 60)
--- NOTE | 2019-06-20 10:30 | Psychiatry Progress Note ---
Date of Encounter: 06/20/19 Time of Encounter: 10:00 Subjective Interval history: Patient has been doing well. There is no notes of additional statements of self-harm since yesterday morning when the nurse called me to inform me that she had made comments saying that "if I You" However It Seems This Was Made More in Reference to She Left AMA without Alcohol Treatment. She Has Been Agreeable to Most Treatments Though at One Point She Did Not Allow Them to Replace the Telemetry. This Morning She Seems to Be Compliant with All Treatment. She Continues to Prefer to Work with an Outpatient Physician about Psychiatric Medications Versus Medical Marijuana for Her PTSD Diagnosis. I Did Discuss with Her That There Is Not Good Large-Scale Studies regarding the Efficacy of Medical Marijuana for These Diagnoses but That There Is 4 SSRIs and Other Medications. She Does Have Capacity to Make Treatment Decisions. Risk-Benefit Side Effects of Different Medications and Other Options. She Is Currently Very Future Oriented. She Is Willing to Stay Another Day and Wants to Feel Better and Then Get into Additional Treatment for Her Alcohol Use. She Is Optimistic about the Future. She Denies Suicidal Thoughts, Ideations, or Plans. She Has Been Noted to Be Smiling and Talking on the Phone. She Was Reading a Book about [employer] When I Came in. Review of Systems Psychiatric: Reports: anxiety. Denies: depression, suicidal ideation, homicidal ideation, auditory hallucinations, visual hallucinations Results - Vital Signs Vital Signs: Temp Pulse Resp BP Pulse Ox 98.4 F 80 16 124/86 97 06/19/19 18:21 06/19/19 18:21 06/19/19 18:21 06/19/19 18:21 06/19/19 18:21 - Labs Labs: Laboratory Results - last 24 hr 06/17/19 06/20/19 06/20/19 15:32 08:59 08:59 WBC 7.7 RBC 4.06 Hgb 13.7 D Hct 39.6 MCV 97.5 MCH 33.7 H MCHC 34.6 RDW 12.6 Plt Count 407 H MPV 8.1 L Sodium 137 Potassium 3.4 L Chloride 102 Carbon Dioxide 26 BUN 6 Creatinine 0.72 Est GFR ( Amer) > 60 Est GFR (Non-Af Amer) > 60 BUN/Creatinine Ratio 8 Glucose 102 Calculated Osmolality 282 Calcium 9.1 Magnesium 2.0 Total Bilirubin 0.4 AST 16 ALT 18 Alkaline Phosphatase 46 Serum Total Protein 6.8 Albumin 4.1 Globulin 2.7 Albumin/Globulin Ratio 1.5 HIV-1 Ab Supplemental NEGATIVE HIV-2 Ab Supplemental NEGATIVE HIV 1&2 Ab Differentiat SEE BELOW HIV 1&2 Antibody Interp HIV ABS NEG - Impressions ITS Impressions Liver Ultrasound 06/17/19 21:00 IMPRESSION: Unremarkable right upper quadrant ultrasound. D/ / Jessy Guerrero MD / Jessy Guerrero MD Interpreting Provider: Jessy Guerrero MD Assessment and Plan (1) Alcohol abuse Current visit: Yes Status: Acute Plan: Continue hospitalization, Close observation, Suicide Precautions per unit protocol, Encourage participation in unit milieu, Group Therapy, Monitor sleep, Monitor appetite Additional Plan: Patient also has historical diagnoses of PTSD, dysthymic disorder, and generalized anxiety disorder from her [facility] in 2016/2017. I do agree with these diagnoses. At this time she does not meet pink slip criteria and psychiatry would be fine with lifting the pink slip and discontinuing the sitter. Risks, benefits, side effects, alternatives discussed w/pt: Yes Patient agreeable to treatment: Yes Consult Discharge Plan - Plan Referrals: Austin Mendenhall DO [Primary Care Provider] - 06/21/19 2:00 pm Psychiatry Exam - Constitutional Vitals: Temp Pulse Resp BP Pulse Ox 98.4 F 80 16 124/86 97 06/19/19 18:21 06/19/19 18:21 06/19/19 18:21 06/19/19 18:21 06/19/19 18:21 General appearance: age & developmentally appropriate, well-groomed, well- nourished - Musculoskeletal Gait: normal Station: relaxed Strength & Tone: normal for patient - Psychiatric Patient Orientation: Yes Person, Yes Time, Yes Place, Yes Circumstance Level of alertness: Alert Behavior: calm, cooperative Psychomotor activity: Normal Eye Contact: Maintains Eye Contact Mood Description: Euthymic/stable Patient description of mood: Better Affect description: congruent with mood, full range Speech Volume: Normal Speech pattern: normal rate, normal rhythm, normal tone, fluent, spontaneous Language & Vocabulary: consistent with education Thought Process: Linear, Goal Oriented Thought Content: No Suicidal ideation, No Homicidal ideation, No Overt delusions Perceptual Disturbances: No Auditory hallucinations, No Visual hallucinations Attention Span Ability: Capable of Focused Attention Memory Description: Grossly Intact Patient Reliability: Reliable Historian Fund of knowledge: Yes abstraction ability, Yes aware of current events Intelligence Estimate: Average Judgment: Good Insight: Full
--- NOTE | 2019-06-20 12:15 | Internal Med Progress Note ---
Hospitalist Progress Note - Encounter Date of Encounter: 06/20/19 Time of Encounter: 09:30 - Subjective Interval History: Pt was seen and examined at bed side. She is very pleasant today she denied any suicidal ideation today She still c/o visual hallucinations.. however overall feels better. - Exam Vitals: Temp Pulse Resp BP Pulse Ox 98.7 F 77 16 123/82 99 06/20/19 11:03 06/20/19 11:03 06/20/19 11:03 06/20/19 11:03 06/20/19 11:35 Exam: Gen: Alert, awake, Oriented to time,place and person Chest: Diminished breath sounds B/L, No wheezing, No crackles, No rales Heart: S1S2+ RRR No murmurs Abd: Soft, NT, BS +, No organomegaly Ext: No edema, pulses are palpable, No calf tenderness Neuro : No acute focal neuro deficits noticed Skin: No rash. Psych :No SI / HI, Depressed..Visual Hallucinations - Assessment and Plan (1) Alcohol abuse Current Visit: Yes Status: Acute Assessment and Plan: Her alcohol level was 113 upon admission Pt stated she has last alcohol in the morning before she came to ER Cont close monitoring for DT's on CIWA protocol will give PO Ativan PRN Con RUSTAM Librium Cont Thiamine and Folic acid Her Liver US was unremarkable. (2) Alcohol withdrawal Current Visit: Yes Status: Acute Assessment and Plan: Improving cont care as above (3) Suicidal ideation Current Visit: Yes Status: Acute Assessment and Plan: Today she is more pleasant and clear minded denied any SI / HI Pt stated she slept well last night.. Feeling much better She still has visual hallucinations pt agreed to continue treatment for her alcohol withdrawal symptoms Talked to psychiatrist Dr. Nix, both agreed to take her of the suicidal precautions, since she is not high risk any more. (4) Substance abuse Current Visit: Yes Status: Acute Assessment and Plan: UDS positive for Marijuana counseled to quit doing drugs (5) Depression Current Visit: Yes Status: Acute Assessment and Plan: due to alcohol dependence Psych on board - Time Spent with Patient Total time spent is greater than 50% in coordination of care (as documented) at patient's floor/unit and/or counseling patient: Internal Medicine: Result - Labs CBC & Chem 7: 06/20/19 08:59 06/20/19 08:59 Labs: Short CBC 06/20/19 Range/Units 08:59 WBC 7.7 (4.3-11.1) K/mcL Hgb 13.7 D (11.5-15.4) g/dL Hct 39.6 (35.3-44.9) % Plt Count 407 H (140-400) K/mcL BMP 06/20/19 08:59 Sodium 137 Potassium 3.4 L Chloride 102 Carbon Dioxide 26 BUN 6 Creatinine 0.72 Glucose 102 Calcium 9.1 Liver Function 06/20/19 Range/Units 08:59 Total Bilirubin 0.4 (0.3-1.0) mg/dL AST 16 (13-39) Units/L ALT 18 (7-52) Units/L Alkaline Phosphatase 46 (34-104) Units/L Albumin 4.1 (3.5-5.7) g/dL - ABG Interpretation ABG results: PT/INR, D-dimer PT 11.1 Seconds (9.4-12.1) 06/17/19 15:32 Consult Discharge Plan - Plan Referrals: Austin Mendenhall DO [Primary Care Provider] - 06/21/19 2:00 pm (2) Alcohol withdrawal Qualifiers: Complication of substance-induced condition: with unspecified complication Qualified Code(s): F10.239 - Alcohol dependence with withdrawal, unspecified (5) Depression Qualifiers: Depression Type: reactive depression Qualified Code(s): F32.9 - Major depressive disorder, single episode, unspecified
[2019-06-20] MEDS: Melatonin 3 MG TABLET PO PRN (21:14)
[2019-06-21] MEDS: *HR* LORazepam 1 MG TABLET PO PRN ×2 (03:25→09:02)
[2019-06-21 05:13] LABS: Hematocrit 39.3 % (35.3-44.9); Hemoglobin 13.1 g/dL (11.5-15.4); Mean Corpuscular HGB Conc 33.3 g/dL (31.6-35.5); Mean Corpuscular Hemoglobin 32.8 pg (28.0-33.3); Mean Corpuscular Volume 98.5 fL (83.0-100.0); Mean Platelet Volume 8.2 fL (9.4-12.4); Platelet Count 405 K/mcL (140-400); Red Blood Count 3.99 M/mcL (3.82-4.97); Red Cell Distribution Width 12.6 % (11.5-14.5); White Blood Count 6.5 K/mcL (4.3-11.1)
[2019-06-21 05:26] LABS: Alanine Aminotransferase 18 Units/L (7-52); Albumin 3.9 g/dL (3.5-5.7); Albumin/Globulin Ratio 1.6 (1.1-2.2); Alkaline Phosphatase 42 Units/L (34-104); Aspartate Amino Transferase 16 Units/L (13-39); BUN/Creatinine Ratio 13 (6-26); Bilirubin,Total 0.4 mg/dL (0.3-1.0); Blood Urea Nitrogen 10 mg/dL (6-20); Carbon Dioxide 25 mEq/L (23-29); Chloride 104 mEq/L (98-107); Globulin 2.5 g/dL (2.4-3.5); Glucose 127 mg/dL (70-105); Osmolality,Calculated 283 (280-300); Potassium 3.5 mEq/L (3.5-5.1); Sodium 136 mEq/L (136-145); Total Protein 6.4 g/dL (6.4-8.9); eGFR For African Americans > 60 (> 60); eGFR For Non-African Americans > 60 (> 60)
[2019-06-21 07:11] VITALS: BP 101/65
[2019-06-21] MEDS: Thiamine (B-1) 100 MG TABLET PO SCH (08:56)
[2019-06-21] MEDS: Folic Acid 1 MG TABLET PO SCH (08:56)
--- NOTE | 2019-06-21 11:03 | Discharge Summary ---
- NOTES TO OUTPATIENT PROVIDER Notes to Outpatient Provider: f/u with PCP in one week. Orders not resulted at time of discharge: Pending orders 06/18/19 04:00 Urinalysis reflex Microscopic [URIN] AM 0400 Date of Encounter: 06/21/19 Time of Encounter: 10:53 - Discharge Diagnosis (1) Alcohol abuse Priority: Primary Status: Acute (2) Alcohol withdrawal Priority: Primary Status: Acute Qualifiers: Complication of substance-induced condition: with unspecified complication Qualified Code(s): F10.239 - Alcohol dependence with withdrawal, unspecified (3) Suicidal ideation Priority: Primary Status: Acute (4) Substance abuse Priority: Secondary Status: Acute (5) Depression Priority: Secondary Status: Acute Qualifiers: Depression Type: reactive depression Qualified Code(s): F32.9 - Major depressive disorder, single episode, unspecified Hospital course: Ms. Nieto is a 43 year old female with no significant past medical history who presented for possible alcohol withdrawal. The patient is chronic alcoholic drink 1 bottle of GI wine every night. Last drink was about 3 hours prior to her arrival to the ER. The patient has been arrested for DUI about a month ago. The patient stated that she is genuinely wish to stop drinking alcohol, however she is afraid to stop suddenly and that will lead to alcohol withdrawal so decided to seek medical attention in our ER. She was admitted in the hospital and placed on media monitor. She was started on CIWA scale. Also started her on Librium as scheduled. During this hospitalization she made comments like "wanted to kill herself on her way home by drinking a bottle of wine", " If I wanted to kill myself , I would not do it here int hospital, will do at home where I can be 100 % successful" . " I will tell the people ( Doctors, Nurses ) what they want to hear only so that they can remove my pink slip and let me go home, I can do whatever I want when I go home ". Also she was very depressed and tear full. So we did pink slip and placed her on suicidal precautions. She was evaluated by psychiatrist and felt her symptoms her due to alcohol withdrawal symptoms. Pt was continued on Librium and Ativan PRN. She denied any suicidal ideation since y/d and pt stated she is feeling better now. She still has few visual hallucinations. Pt wanted to f/u with [facility] as an out pt. So will d/c her home in stable condition today with tapering dose of Librium.. Pt requested for PO Ativan PRN too, if she gets any symptoms. - Time Spent with Patient Total time spent providing and/or coordinating discharge services: - Discharge Medications Prescriptions: New LORazepam [Ativan] 0.5 mg PO BID PRN 4 Days #8 tablet PRN Reason: Alcohol Withdrawal Folic Acid 1 mg PO DAILY #30 tablet Chlordiazepoxide [Librium] 25 mg PO QID 8 Days #20 capsule Thiamine (B-1) [Vitamin B-1] 100 mg PO DAILY #30 tablet Home Medications: Chlordiazepoxide [Librium] 25 mg PO QID 8 Days #20 capsule 06/21/19 [Rx] Folic Acid 1 mg PO DAILY #30 tablet 06/21/19 [Rx] LORazepam [Ativan] 0.5 mg PO BID PRN 4 Days #8 tablet 06/21/19 [Rx] Thiamine (B-1) [Vitamin B-1] 100 mg PO DAILY #30 tablet 06/21/19 [Rx] Allergies/Adverse Reactions: Allergy/AdvReac Type Severity Reaction Status Date / Time No Known Allergies Allergy Verified 06/17/19 13:51 Date of admission: 06/17/19 17:12 Primary care physician: Austin Mendenhall DO Consults: 06/17/19 16:43 Consult to Research Laboratory Specialist [CONS] Routine Reason for SW Consult: placement 06/18/19 22:08 Consult to Psychiatry [CONS] Routine Consulting Provider: Psych[facility] [place] Reason consult: [place] slip on chart Other reason and/or additional details: Patient made a comment of harming herself earlier today and was pink-slipped as a result. Now refusing treatment for her alcohol withdrawal. uJditer informed me that the patient told her "she will tell people anything they want to hear so she can get out of here and end her life". [place] Slip initiated date and time: 06/18/19 at 16:25 Time Notified: 22:10 Call Completed: Yes 06/19/19 17:39 Consult to Research Laboratory Specialist [CONS] Routine Reason for SW Consult: ciwa - Constitutional Vitals: Temp Pulse Resp BP Pulse Ox 98.0 F 67 15 101/65 99 06/21/19 07:09 06/21/19 07:09 06/21/19 07:09 06/21/19 07:09 06/21/19 07:09 General appearance: Present: A&O X 3, no acute distress, answers questions appropriately Exam: Gen: Alert, awake, Oriented to time,place and person Chest: Diminished breath sounds B/L, No wheezing, No crackles, No rales Heart: S1S2+ RRR No murmurs Abd: Soft, NT, BS +, No organomegaly Ext: No edema, pulses are palpable, No calf tenderness Neuro : No acute focal neuro deficits noticed Skin: No rash. Psych :No SI / HI, Depressed. - Patient Status Disposition: Home, Self-Care Condition: Good Overall status at discharge: patient is back to baseline - Discharge Instructions Follow Up With: Austin Mendenhall DO [Primary Care Provider] - 06/27/19 10:00 am - Diet and Activity Activity: increase activity as tolerated Diet: low salt diet
== END 2019-06-21 12:16 | disposition home or self-care (01) ==
LOC: EMEROOARM 13:49 → 3BNU 13:49 → SUATTDRO 17:12 → 3BNU 18:46
PROVIDERS: ADMIT Internal Medicine Nephrology; ATTEND Family Medicine